=== PATIENT | male | born 1960 | race American Indian/Alaskan Native ===

== ENCOUNTER 2019-03-12 20:51 | Emergency (ER) | payer OTHER ==
[~2019-03-12] VITALS: Ht 165.1 cm; Wt 86.2 kg
== END 2019-03-12 22:52 | disposition home or self-care (01) ==
LOC: ED 20:51
DX: G89.29 Other chronic pain (principal); M79.671 Pain in right foot; M79.672 Pain in left foot; I10 Essential (primary) hypertension; E11.9 Type 2 diabetes mellitus without complications
CPT/HCPCS: 80053; 80176; 81001; 84443; 85025; 99283; G0480

== ENCOUNTER 2019-03-14 02:33 | Emergency (ER) | payer OTHER ==
[~2019-03-14] VITALS: Ht 165.1 cm; Wt 86.2 kg
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
== END 2019-03-14 05:29 | disposition home or self-care (01) ==
LOC: ED 02:33
DX: F10.129 Alcohol abuse with intoxication, unspecified (principal); I10 Essential (primary) hypertension; E11.9 Type 2 diabetes mellitus without complications
CPT/HCPCS: 99284

== ENCOUNTER 2019-03-15 23:27 | Emergency (ER) | payer OTHER ==
[~2019-03-15] VITALS: Ht 165.1 cm; Wt 86.2 kg
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
[2019-03-16] MEDS ORDERED: LORAZEPAM1 MG PO (20:48)
== END 2019-03-16 02:33 | disposition home or self-care (01) ==
LOC: ED 23:27
DX: F10.129 Alcohol abuse with intoxication, unspecified (principal); E11.9 Type 2 diabetes mellitus without complications; I10 Essential (primary) hypertension
CPT/HCPCS: 99284

== ENCOUNTER 2019-03-16 15:52 | Emergency (ER) | payer OTHER ==
[~2019-03-16] VITALS: Ht 165.1 cm; Wt 86.2 kg
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
[2019-03-16] MEDS ORDERED: LORAZEPAM1 MG PO (20:48)
== END 2019-03-16 20:48 | disposition home or self-care (01) ==
LOC: ED 15:52
DX: G89.29 Other chronic pain (principal); M79.671 Pain in right foot; M79.672 Pain in left foot; F10.10 Alcohol abuse, uncomplicated; I10 Essential (primary) hypertension; E11.9 Type 2 diabetes mellitus without complications
CPT/HCPCS: 99283

== ENCOUNTER 2019-08-29 00:39 | Emergency (ER) | payer OTHER ==
[~2019-08-29] VITALS: Ht 167.6 cm; Wt 86.2 kg
[~2019-08-29 00:39] MED LIST: LORAZEPAM1 MG PO
[2019-08-29] MEDS ORDERED: VENTOLIN HFA18 GM INH (01:07)
== END 2019-08-29 01:58 | disposition home or self-care (01) ==
LOC: ED 00:39
DX: F10.129 Alcohol abuse with intoxication, unspecified (principal); E11.9 Type 2 diabetes mellitus without complications; I10 Essential (primary) hypertension; J45.909 Unspecified asthma, uncomplicated; Z79.899 Other long term (current) drug therapy
CPT/HCPCS: 99283

== ENCOUNTER 2019-08-31 04:25 | Emergency (ER) | payer OTHER ==
[~2019-08-31] VITALS: Ht 167.6 cm; Wt 86.2 kg
[~2019-08-31 04:25] MED LIST changes: +VENTOLIN HFA18 GM INH
== END 2019-08-31 05:31 | disposition home or self-care (01) ==
LOC: ED 04:25
DX: S40.011A Contusion of right shoulder, initial encounter (principal); G89.29 Other chronic pain; M79.671 Pain in right foot; M79.672 Pain in left foot; M25.561 Pain in right knee; W01.198A Fall on same level from slipping, tripping and stumbling with subsequent striking against other object, initial encounter; E11.9 Type 2 diabetes mellitus without complications; I10 Essential (primary) hypertension; J45.909 Unspecified asthma, uncomplicated; Z91.018 Allergy to other foods
CPT/HCPCS: 73030; 99283-25